=== PATIENT | male | born 1940 | race Caucasian/White ===

== ENCOUNTER → 2018-07-31 | Outpatient (CLI) | payer MEDICARE ==
[2018-07-31 10:51] LABS: HGB 14.7 gm/dL (13.0-17.5); MCHC 32.7 g/dL (31.0-37.0); MCV 88.6 fL (80.0-100.0); Mean Platelet Volume 7.3; Platelet Count 204 k/uL (150-450); RBC 5.09 m/uL (4.30-5.90); RDW 14.1 % (11.5-15.5); WBC 7.7 k/uL (3.8-10.6)
[2018-07-31 11:59] LABS: Prothrombin Time 9.8 sec (9.0-12.0)
[2018-07-31 19:18] LABS: Anion Gap 10.6 mmol/L (4.00-12.00); Carbon Dioxide 22.4 mmol/L (21.6-31.8); Potassium 4.2 mmol/L (3.5-5.5)
== END | disposition home or self-care (01) ==
LOC: LABWHC1 09:53
PROVIDERS: ATTEND Internal Medicine Cardiovascular Disease
DX: I10 Essential (primary) hypertension (principal); I25.10 Atherosclerotic heart disease of native coronary artery without angina pectoris
CPT/HCPCS: 36415; 80051; 82565; 84520; 85027; 85610

== ENCOUNTER → 2019-01-26 | Outpatient (CLI) | payer MEDICARE ==
[2019-01-26 13:47] LABS: HCT 43.4 % (39.0-53.0); HGB 14.2 gm/dL (13.0-17.5); MCH 29.4 pg (25.0-35.0); MCHC 32.8 g/dL (31.0-37.0); MCV 89.6 fL (80.0-100.0); Mean Platelet Volume 7.3; Platelet Count 229 k/uL (150-450); RBC 4.84 m/uL (4.30-5.90); RDW 14.1 % (11.5-15.5); WBC 6.9 k/uL (3.8-10.6)
[2019-01-26 20:28] LABS: Albumin 4.6 g/dL (3.80-4.90); Albumin/Globulin Ratio 2.56 (1.60-3.17); Anion Gap 9.4 mmol/L (4.00-12.00); Calcium 9.6 mg/dL (8.7-10.3); Carbon Dioxide 25.6 mmol/L (21.6-31.8); Globulin 1.8 g/dL (1.6-3.3); LDL Cholesterol,Calculated 70.4 mg/dL (0.0-131.0); Potassium 4.5 mmol/L (3.5-5.5); Total Bilirubin 0.4 mg/dL (0.2-1.2); Total Protein 6.4 g/dL (6.2-8.2); VLDL Calculation 51.6 mg/dL (5.00-40.00)
[2019-01-26 21:53] LABS: Hemoglobin A1C 7.6 % (4.0-6.0)
== END ==
LOC: LABWHC1 12:43
PROVIDERS: ATTEND Family Medicine
DX: I10 Essential (primary) hypertension (principal); E11.9 Type 2 diabetes mellitus without complications; E78.00 Pure hypercholesterolemia, unspecified; E03.9 Hypothyroidism, unspecified
CPT/HCPCS: 36415; 80053; 80061; 83036; 84443; 85027

== ENCOUNTER → 2019-02-04 | Outpatient (CLI) | payer MEDICARE ==
--- NOTE | 2019-02-04 10:40 | US ---
EXAMINATION TYPE: US extremity nonvasc mass RT DATE OF EXAM: 02/04/2019 COMPARISON: NONE CLINICAL HISTORY: R22.9 Localized swelling, mass and lump, unspecifi. Superficial hard lump right med ial mid calf for 3 weeks Scanned within patient's area of concern, right mid calf, complex anechoic area = 1.6 x 0.8 x 1.7cm . This appears centrally cystic with some low-level internal echoes and peripheral thick wall. No hype remia or internal vascularity is seen. IMPRESSION: Palpable avascular thick-walled cystic minimally complex superficial mass of the right m id calf most likely represents a hematoma. If there is no clinical resolution repeat short-term ultra sound or MRI with contrast could be performed.
== END | disposition home or self-care (01) ==
LOC: RADUSWWP 08:52
PROVIDERS: ATTEND Family Medicine
DX: R22.9 Localized swelling, mass and lump, unspecified (principal)

== ENCOUNTER → 2019-07-16 | Outpatient (CLI) | payer MEDICARE ==
[2019-07-16 10:52] LABS: HCT 45.5 % (39.0-53.0); HGB 14.2 gm/dL (13.0-17.5); MCH 28.6 pg (25.0-35.0); MCHC 31.3 g/dL (31.0-37.0); MCV 91.6 fL (80.0-100.0); Platelet Count 240 k/uL (150-450); RBC 4.97 m/uL (4.30-5.90); RDW 14.3 % (11.5-15.5); WBC 14.7 k/uL (3.8-10.6)
[2019-07-16 18:54] LABS: African American GFR (CKD) 74.1 (60.0-200.0); Albumin 4.6 g/dL (3.80-4.90); Albumin/Globulin Ratio 2.42 (1.60-3.17); Anion Gap 13.8 mmol/L (4.00-12.00); BUN/Creat Ratio 26.36 Ratio (12.00-20.00); Calcium 9.4 mg/dL (8.7-10.3); Carbon Dioxide 25.2 mmol/L (21.6-31.8); Chol/HDL Ratio 3.86; Globulin 1.9 g/dL (1.6-3.3); Potassium 4.4 mmol/L (3.5-5.5); Total Bilirubin 0.4 mg/dL (0.2-1.2); Total Protein 6.5 g/dL (6.2-8.2)
[2019-07-16 20:22] LABS: Hemoglobin A1C 8.7 % (4.0-6.0)
== END | disposition home or self-care (01) ==
LOC: LABWHC1 09:36
PROVIDERS: ATTEND Family Medicine
DX: E11.9 Type 2 diabetes mellitus without complications (principal); I10 Essential (primary) hypertension; E78.00 Pure hypercholesterolemia, unspecified; E03.9 Hypothyroidism, unspecified
CPT/HCPCS: 36415; 80053; 80061; 83036; 84443; 85027

== ENCOUNTER → 2020-04-14 | Outpatient (CLI) | payer MEDICARE ==
[2020-04-14 09:37] LABS: HCT 44.1 % (39.0-53.0); MCH 28.2 pg (25.0-35.0); MCHC 31.7 g/dL (31.0-37.0); Mean Platelet Volume 7.5; Platelet Count 220 k/uL (150-450); RBC 4.95 m/uL (4.30-5.90); RDW 13.6 % (11.5-15.5); WBC 7.3 k/uL (3.8-10.6)
[2020-04-14 16:06] LABS: African American GFR (CKD) 73.6 (60.0-200.0); Albumin 4.3 g/dL (3.80-4.90); Albumin/Globulin Ratio 2.05 (1.60-3.17); Anion Gap 10.3 mmol/L (4.00-12.00); BUN/Creat Ratio 17.27 Ratio (12.00-20.00); Calcium 9.6 mg/dL (8.7-10.3); Carbon Dioxide 23.7 mmol/L (21.6-31.8); Chol/HDL Ratio 4.33; Globulin 2.1 g/dL (1.6-3.3); LDL Cholesterol,Calculated 58.6 mg/dL (0.0-131.0); Non-African American GFR(CKD) 63.5 (60.0-200.0); Potassium 4.4 mmol/L (3.5-5.5); Total Bilirubin 0.4 mg/dL (0.3-1.2); Total Protein 6.4 g/dL (6.2-8.2); VLDL Calculation 71.4 mg/dL (5.00-40.00)
[2020-04-14 17:46] LABS: Hemoglobin A1C 10.2 % (4.0-6.0)
== END | disposition home or self-care (01) ==
LOC: LABWHC1 08:39
PROVIDERS: ATTEND Family Medicine
DX: I10 Essential (primary) hypertension (principal); R73.09 Other abnormal glucose; E78.00 Pure hypercholesterolemia, unspecified
CPT/HCPCS: 36415; 80053; 80061; 83036; 84443; 85027

== ENCOUNTER → 2020-07-28 | Outpatient (CLI) | payer MEDICARE ==
[2020-07-28 17:20] LABS: Hemoglobin A1C 7.6 % (4.0-6.0)
== END | disposition home or self-care (01) ==
LOC: LABWHC1 08:59
PROVIDERS: ATTEND Family Medicine
DX: E11.9 Type 2 diabetes mellitus without complications (principal)
CPT/HCPCS: 36415; 83036

== ENCOUNTER → 2021-07-17 | Outpatient (CLI) | payer MEDICARE ==
[2021-07-17 16:11] LABS: HCT 44.9 % (39.6-50.0); HGB 14.8 g/dL (13.0-17.0); MCH 29.4 pg (27.0-32.0); MCV 89.3 fL (80.0-97.0); Mean Platelet Volume 10.6 fL (9.5-12.2); Platelet Count 233 X 10*3/uL (140-440); RBC 5.03 X 10*6/uL (4.40-5.60); RDW 13.8 % (11.5-14.5); WBC 7.38 X 10*3/uL (4.50-10.00)
[2021-07-17 17:44] LABS: African American GFR (CKD) 78.2 (60.0-200.0); Albumin 4.6 g/dL (3.8-4.9); Albumin/Globulin Ratio 1.83 (1.60-3.17); Anion Gap 15.9 mmol/L (4.00-12.00); Blood Urea Nitrogen 20.8 mg/dL (9.0-27.0); Calcium 9.7 mg/dL (8.7-10.3); Carbon Dioxide 19.4 mmol/L (21.6-31.8); Chol/HDL Ratio 4.35 Ratio; Globulin 2.5 g/dL (1.6-3.3); HDL Cholesterol 39.8 mg/dL (40.00-60.00); Non-African American GFR(CKD) 67.5 (60.0-200.0); Potassium 4.4 mmol/L (3.5-5.5); Total Bilirubin 0.3 mg/dL (0.30-1.20)
== END | disposition home or self-care (01) ==
LOC: LABWHC1 08:15
PROVIDERS: ATTEND Family Medicine
DX: I10 Essential (primary) hypertension (principal); E11.9 Type 2 diabetes mellitus without complications; E78.5 Hyperlipidemia, unspecified
CPT/HCPCS: 36415; 80053; 80061; 83036; 83721; 84443; 85027

== ENCOUNTER → 2022-05-20 | Outpatient (CLI) | payer MEDICARE ==
[2022-05-20 09:58] LABS: INR 0.9 (<1.2); Partial Thromboplastin Time 23.4 sec (22.0-30.0); Prothrombin Time 10.2 sec (9.0-12.0)
[2022-05-20 14:30] LABS: HCT 42.3 % (39.6-50.0); HGB 13.6 g/dL (13.0-17.0); MCHC 32.2 g/dL (32.0-37.0); Mean Platelet Volume 9.9 fL (9.5-12.2); NRBC Per 100 WBC 0 /100 WBCS (0.0-0.0); Platelet Count 216 X 10*3/uL (140-440); RBC 4.86 X 10*6/uL (4.40-5.60); RDW 14.5 % (11.5-14.5); WBC 8.54 X 10*3/uL (4.50-10.00)
[2022-05-20 14:40] LABS: African American GFR (CKD) 72.6 (60.0-200.0); Albumin 4.4 g/dL (3.8-4.9); Albumin/Globulin Ratio 1.42 (1.60-3.17); Anion Gap 11.8 mmol/L (10.00-18.00); BUN/Creat Ratio 19.27 Ratio (12.00-20.00); Blood Urea Nitrogen 21.2 mg/dL (9.0-27.0); Calcium 9.6 mg/dL (8.7-10.3); Carbon Dioxide 23.2 mmol/L (20.0-27.5); Globulin 3.1 g/dL (1.6-3.3); Non-African American GFR(CKD) 62.6 (60.0-200.0); Potassium 4.2 mmol/L (3.5-5.5); Total Bilirubin 0.2 mg/dL (0.30-1.20); Total Protein 7.5 g/dL (6.2-8.2)
[2022-05-20 20:34] LABS: Appearance,Urine Clear (Clear); Bilirubin,Urine Negative (Negative); Blood,Urine Negative (Negative); Color,Urine Yellow (Yellow); Ketones,Urine Trace mg/dL (Negative); Nitrite,Urine Negative (Negative); PH, Urine 6.5 (5.0-8.0); Specific Gravity,Urine 1.024 (1.001-1.030)
== END | disposition home or self-care (01) ==
LOC: LABPAT 09:17
PROVIDERS: ATTEND Orthopaedic Surgery
DX: Z01.812 Encounter for preprocedural laboratory examination (principal); M16.12 Unilateral primary osteoarthritis, left hip
CPT/HCPCS: 80053; 81001; 85027; 85610; 85730; 87070; 93005

== ENCOUNTER → 2022-06-06 | Outpatient (CLI) | payer MEDICARE ==
--- NOTE | 2022-06-06 16:47 | US ---
EXAMINATION TYPE: US venous doppler duplex LE LT DATE OF EXAM: 06/06/2022 4:24 PM COMPARISON: 09/08/2017 venous ultrasound. CLINICAL HISTORY: I80.9 PHLEBITIS AND THROMBOPHLEBITIS OF UNSPECIFI. SIDE PERFORMED: left TECHNIQUE: The lower extremity deep venous system is examined utilizing real time linear array sonog joaquin with graded compression, doppler sonography and color-flow sonography. VESSELS IMAGED: Common Femoral Vein Deep Femoral Vein Greater Saphenous Vein * Femoral Vein Popliteal Vein Small Saphenous Vein * Proximal Calf Veins (* superficial vessels) Grayscale, color doppler, spectral doppler imaging performed of the deep veins of the left lower extr emity. There is normal flow, compressibility, vascular waveforms. Left Leg: Negative for DVT IMPRESSION: No deep venous thrombosis of the left lower extremity.
== END | disposition home or self-care (01) ==
LOC: RADUSWWP 16:08
PROVIDERS: ATTEND Orthopaedic Surgery
DX: M16.12 Unilateral primary osteoarthritis, left hip (principal); I80.9 Phlebitis and thrombophlebitis of unspecified site; E78.5 Hyperlipidemia, unspecified; I10 Essential (primary) hypertension; E11.9 Type 2 diabetes mellitus without complications

== ENCOUNTER → 2023-02-24 | Outpatient (CLI) | payer MEDICARE ==
[2023-02-24 15:42] LABS: Basophils # (A) 0.06 X 10*3/uL (0.00-0.10); Basophils % (A) 0.9 %; Eosinophils # (A) 0.32 X 10*3/uL (0.04-0.35); Eosinophils % (A) 4.9 %; HCT 41.4 % (39.6-50.0); HGB 13.3 g/dL (13.0-17.0); Immature Grans, Automated 0.5 %; Lymphocytes # (A) 1.26 X 10*3/uL (0.90-5.00); Lymphocytes % (A) 19.3 %; MCHC 32.1 g/dL (32.0-37.0); MCV 87.2 fL (80.0-97.0); Monocytes # (A) 0.56 X 10*3/uL (0.20-1.00); Monocytes % (A) 8.6 %; NRBC Per 100 WBC 0 /100 WBCS (0.0-0.0); Neutrophils # (A) 4.31 X 10*3/uL (1.80-7.70); Neutrophils % (A) 65.8 %; Platelet Count 220 X 10*3/uL (140-440); RBC 4.75 X 10*6/uL (4.40-5.60); WBC 6.54 X 10*3/uL (4.50-10.00)
[2023-02-24 15:47] LABS: African American GFR (CKD) 80.9 (60.0-200.0); Chol/HDL Ratio 3.55 Ratio; Glucose 180 mg/dL (70-110); LDL Cholesterol,Calculated 51.8 mg/dL (0.0-131.0); Non-African American GFR(CKD) 69.8 (60.0-200.0); Uric Acid 6.4 mg/dL (3.7-8.7)
== END | disposition home or self-care (01) ==
LOC: LABWHC1 08:44
PROVIDERS: ATTEND Internal Medicine
DX: I25.10 Atherosclerotic heart disease of native coronary artery without angina pectoris (principal)
CPT/HCPCS: 36415; 80061; 82565; 82947; 84520; 84550; 85025

== ENCOUNTER 2024-08-24 10:46 | Emergency (ER) | payer MEDICARE ==
[2024-08-24 10:50] VITALS: TEMP 97.5
--- NOTE | 2024-08-24 11:01 | ED ---
General Adult HPI - General Chief complaint: Shortness of Breath Stated complaint: LAITH Time Seen by Provider: 08/24/24 10:53 Source: patient, RN notes reviewed Mode of arrival: wheelchair Limitations: no limitations - History of Present Illness Initial comments: 83-year-old male presents emergency department chief complaint of shortness of breath. Patient states he has not felt well the last couple weeks he states he is on his second Z-Abdulkadir prescribed by his PCP. Patient states has had a large amount of thick nasal drainage, productive cough. He states that today he developed worsening cough and wheezing. Patient states he does have a history of congestive heart failure he states he is on 2 diuretics. He does have chronic swelling of his lower extremities not worse than usual. He states he normally has some blistering. He reports no reported fever denies any chest pain - Related Data Home Medications Medication Instructions Recorded Confirmed Aspirin EC [Ecotrin] 81 mg PO DAILY 05/04/16 08/24/24 Levothyroxine Sodium [Synthroid] 150 mcg PO DAILY 05/04/16 08/24/24 Clopidogrel [Plavix] 75 mg PO DAILY 05/22/22 08/24/24 Isosorbide Mononitrate ER [Imdur] 30 mg PO DAILY 05/22/22 08/24/24 Losartan Potassium [Cozaar] 100 mg PO DAILY 05/22/22 08/24/24 Metoprolol Succinate (ER) [Toprol 25 mg PO DAILY 05/22/22 08/24/24 Xl] metFORMIN HCL [Glucophage] 1,000 mg PO DAILY 05/22/22 08/24/24 Azithromycin [Zithromax Z Pack] See Taper PO DIRECTED 08/24/24 08/24/24 Empagliflozin [Jardiance] 10 mg PO DAILY 08/24/24 08/24/24 Furosemide [Lasix] 40 mg PO DAILY 08/24/24 08/24/24 Potassium Chloride ER [K-Dur 20] 20 meq PO DAILY 08/24/24 08/24/24 Rosuvastatin [Crestor] 20 mg PO HS 08/24/24 08/24/24 Allergies Allergy/AdvReac Type Severity Reaction Status Date / Time Penicillins Allergy Swelling Verified 08/24/24 11:41 Review of Systems ROS Statement: Those systems with pertinent positive or pertinent negative responses have been documented in the HPI. ROS Other: All systems not noted in ROS Statement are negative. Past Medical History Past Medical History: Hyperlipidemia, Hypertension, Myocardial Infarction (SD), Thyroid Disorder Additional Past Medical History / Comment(s): Emphysema Last Myocardial Infarction Date:: 1992 History of Any Multi-Drug Resistant Organisms: None Reported Past Surgical History: Appendectomy, Back Surgery, Coronary Bypass/CABG, Joint Replacement, Orthopedic Surgery Past Anesthesia/Blood Transfusion Reactions: No Reported Reaction Past Psychological History: No Psychological Hx Reported Smoking Status: Former smoker Past Alcohol Use History: None Reported - Past Family History Sister(s) Family Medical History: Diabetes Mellitus Father Family Medical History: Myocardial Infarction (SD) Mother Family Medical History: Cancer General Exam Limitations: no limitations General appearance: alert, in no apparent distress Head exam: Present: atraumatic, normocephalic, normal inspection Respiratory exam: Present: wheezes, stridor. Absent: normal lung sounds bilaterally, respiratory distress, rales, rhonchi Cardiovascular Exam: Present: regular rate, normal rhythm, normal heart sounds. Absent: systolic murmur, diastolic murmur, rubs, gallop, clicks GI/Abdominal exam: Present: soft, normal bowel sounds. Absent: distended, tenderness, guarding, rebound, rigid Extremities exam: Present: pedal edema Neurological exam: Present: alert Skin exam: Present: warm, dry, intact, normal color. Absent: rash Course Vital Signs 08/24/24 08/24/24 08/24/24 10:47 10:55 11:15 Temperature 97.5 F L Pulse Rate 103 H 90 89 Respiratory 28 H 26 H Rate Blood Pressure 116/75 108/56 O2 Sat by Pulse 98 98 Oximetry 08/24/24 08/24/24 08/24/24 11:24 11:53 11:57 Temperature Pulse Rate 88 75 Respiratory 20 20 Rate Blood Pressure 108/56 O2 Sat by Pulse 98 Oximetry 08/24/24 08/24/24 12:22 12:32 Temperature Pulse Rate 84 89 Respiratory Rate Blood Pressure O2 Sat by Pulse Oximetry Medical Decision Making - Medical Decision Making Was pt. sent in by a medical professional or institution (, PA, RAILROAD CONDUCTOR, urgent care, hospital, or senior care...) When possible be specific @ -No Did you speak to anyone other than the patient for history (EMS, parent, family, police, friend...)? What history was obtained from this source @ -No Did you review nursing and triage notes (agree or disagree)? Why? @ -I reviewed and agree with nursing and triage notes Were old charts reviewed (outside hosp., previous admission, EMS record, old EKG, old radiological studies, urgent care reports/EKG's, senior care records)? Report findings @ -No old charts were reviewed Differential Diagnosis (chest pain, altered mental status, abdominal pain women, abdominal pain men, vaginal bleeding, weakness, fever, dyspnea, syncope, headache, dizziness, GI bleed, back pain, seizure, CVA, palpatations, mental health, musculoskeletal)? @ -Differential Dyspnea: Coronary syndrome, arrhythmia, tamponade, asthma, COPD, pulmonary embolism, pneumonia, pneumothorax, pulmonary effusion, anaphylaxis, diabetic ketoacidosis, flailed chest, pulmonary contusion, diaphragmatic rupture, anemia, neuromuscular, this is not meant to be an all-inclusive list. EKG interpreted by me (3pts min.). @ -As above X-rays interpreted by me (1pt min.). @ -Chest x-ray shows chronic changes no acute infiltrate X-ray soft tissue neck no acute process CT interpreted by me (1pt min.). @ -None done U/S interpreted by me (1pt. min.). @ -None done What testing was considered but not performed or refused? (CT, X-rays, U/S, labs)? Why? @ -None What meds were considered but not given or refused? Why? @ -None Did you discuss the management of the patient with other professionals (professionals i.e. , PA, RAILROAD CONDUCTOR, lab, RT, psych nurse, licensed social worker, quality control tech, teacher, juvenile officer, pillowcase cutter)? Give summary @ -Dr. Hernandez for admission with pulmonary consult Was smoking cessation discussed for >3mins.? @ -No Was critical care preformed (if so, how long)? @ -No Were there social determinants of health that impacted care today? How? (Homelessness, low income, unemployed, alcoholism, drug addiction, transpo rtation, low edu. Level, literacy, decrease access to med. care, assisted, rehab)? @ -No Was there de-escalation of care discussed even if they declined (Discuss DNR or withdrawal of care, Hospice)? DNR status @ -No What co-morbidities impacted this encounter? (DM, HTN, Smoking, COPD, CAD, Cancer, CVA, ARF, Chemo, Hep., AIDS, mental health diagnosis, sleep apnea, morbid obesity)? @ -None Was patient admitted / discharged? Hospital course, mention meds given and route, prescriptions, significant lab abnormalities, going to OR and other pertinent info. @ -Admitted patient presented for dyspnea, stridorous dyspnea patient did have racemic epinephrine, DuoNeb, steroids he said minimal improvement. Patient be admitted for further evaluation treatment continuation of steroids antibiotics are giving pending procalcitonin. Undiagnosed new problem with uncertain prognosis? @ -No Drug Therapy requiring intensive monitoring for toxicity (Heparin, Nitro, Insulin, Cardizem)? @ -No Were any procedures done? @ -No Diagnosis/symptom? @ -Inspiratory stridor, dyspnea, tracheobronchitis Acute, or Chronic, or Acute on Chronic? @ -Acute Uncomplicated (without systemic symptoms) or Complicated (systemic symptoms)? @ -Complicated Side effects of treatment? @ -No Exacerbation, Progression, or Severe Exacerbation? @ -No Poses a threat to life or bodily function? How? (Chest pain, USA, SD, pneumonia, PE, COPD, DKA, ARF, appy, cholecystitis, CVA, Diverticulitis, Homicidal, Suicidal, threat to staff... and all critical care pts) @ -Yes stridor, causing respiratory arrest - Lab Data Result diagrams: 08/24/24 11:23 08/24/24 11:23 Lab Results 08/24/24 08/24/24 08/24/24 Range/Units 11:23 11:23 11:23 WBC 16.5 H (3.8-10.6) k/uL RBC 4.93 (4.30-5.90) m/uL Hgb 13.9 (13.0-17.5) gm/dL Hct 43.8 (39.0-53.0) % MCV 88.8 (80.0-100.0) fL MCH 28.3 (25.0-35.0) pg MCHC 31.8 (31.0-37.0) g/dL RDW 15.1 (11.5-15.5) % Plt Count 333 (150-450) k/uL MPV 7.3 Neutrophils % 86 % Lymphocytes % 8 % Monocytes % 5 % Eosinophils % 1 % Basophils % 1 % Neutrophils # 14.1 H (1.3-7.7) k/uL Lymphocytes # 1.3 (1.0-4.8) k/uL Monocytes # 0.8 (0-1.0) k/uL Eosinophils # 0.1 (0-0.7) k/uL Basophils # 0.1 (0-0.2) k/uL Hypochromasia Slight PT 10.5 (10.0-12.5) sec INR 0.9 (<1.2) APTT 25.6 (22.0-30.0) sec Sodium 141 (137-145) mmol/L Potassium 4.5 (3.5-5.1) mmol/L Chloride 105 (98-107) mmol/L Carbon Dioxide 22 (22-30) mmol/L Anion Gap 14 mmol/L BUN 29 H (9-20) mg/dL Creatinine 1.36 H (0.66-1.25) mg/dL Est GFR (CKD-EPI)AfAm 55 (>60 ml/min/1.73 sqM) Est GFR (CKD-EPI)NonAf 48 (>60 ml/min/1.73 sqM) Glucose 186 H (74-99) mg/dL Plasma Lactic Acid Tray (0.7-2.0) mmol/L Calcium 9.5 (8.4-10.2) mg/dL Total Bilirubin 1.1 (0.2-1.3) mg/dL AST 33 (17-59) U/L ALT 25 (4-49) U/L Alkaline Phosphatase 67 (38-126) U/L Troponin I (0.000-0.034) ng/mL NT-Pro-B Natriuret Pep 361 pg/mL Total Protein 7.9 (6.3-8.2) g/dL Albumin 4.5 (3.5-5.0) g/dL 08/24/24 08/24/24 Range/Units 11:23 11:23 WBC (3.8-10.6) k/uL RBC (4.30-5.90) m/uL Hgb (13.0-17.5) gm/dL Hct (39.0-53.0) % MCV (80.0-100.0) fL MCH (25.0-35.0) pg MCHC (31.0-37.0) g/dL RDW (11.5-15.5) % Plt Count (150-450) k/uL MPV Neutrophils % % Lymphocytes % % Monocytes % % Eosinophils % % Basophils % % Neutrophils # (1.3-7.7) k/uL Lymphocytes # (1.0-4.8) k/uL Monocytes # (0-1.0) k/uL Eosinophils # (0-0.7) k/uL Basophils # (0-0.2) k/uL Hypochromasia PT (10.0-12.5) sec INR (<1.2) APTT (22.0-30.0) sec Sodium (137-145) mmol/L Potassium (3.5-5.1) mmol/L Chloride (98-107) mmol/L Carbon Dioxide (22-30) mmol/L Anion Gap mmol/L BUN (9-20) mg/dL Creatinine (0.66-1.25) mg/dL Est GFR (CKD-EPI)AfAm (>60 ml/min/1.73 sqM) Est GFR (CKD-EPI)NonAf (>60 ml/min/1.73 sqM) Glucose (74-99) mg/dL Plasma Lactic Acid Tray 2.8 H* (0.7-2.0) mmol/L Calcium (8.4-10.2) mg/dL Total Bilirubin (0.2-1.3) mg/dL AST (17-59) U/L ALT (4-49) U/L Alkaline Phosphatase (38-126) U/L Troponin I <0.012 (0.000-0.034) ng/mL NT-Pro-B Natriuret Pep pg/mL Total Protein (6.3-8.2) g/dL Albumin (3.5-5.0) g/dL Disposition Clinical Impression: Tracheobronchitis, Inspiratory stridor Disposition: ADMITTED IP TO THIS HOSP Condition: Fair Referrals: Jordin Pereira MD [Primary Care Provider] - 1-2 days Time of Disposition: 13:06
[2024-08-24] MEDS: methylPREDNISolone SOD SUCCI 125 MG/2 ML VIAL IV STA (11:05)
[2024-08-24] MEDS: RACEPINEPHRINE 2.25% NEB 0.5 ML NEBU INHALATION STA (11:14)
[2024-08-24 11:44] LABS: Basophils # (A) 0.1 k/uL (0-0.2); Basophils % (A) 1 %; Eosinophils # (A) 0.1 k/uL (0-0.7); Eosinophils % (A) 1 %; HCT 43.8 % (39.0-53.0); HGB 13.9 gm/dL (13.0-17.5); Hypochromasia Slight; Lymphocytes # (A) 1.3 k/uL (1.0-4.8); Lymphocytes % (A) 8 %; MCH 28.3 pg (25.0-35.0); MCHC 31.8 g/dL (31.0-37.0); MCV 88.8 fL (80.0-100.0); Mean Platelet Volume 7.3; Monocytes # (A) 0.8 k/uL (0-1.0); Monocytes % (A) 5 %; Neutrophils # (A) 14.1 k/uL (1.3-7.7); Neutrophils % (A) 86 %; Platelet Count 333 k/uL (150-450); RBC 4.93 m/uL (4.30-5.90); RDW 15.1 % (11.5-15.5); WBC 16.5 k/uL (3.8-10.6)
--- NOTE | 2024-08-24 11:54 | XR ---
EXAMINATION TYPE: XR chest 2V DATE OF EXAM: 08/24/2024 11:45 AM COMPARISON: Chest radiographs from 05/04/2016, CT chest 08/21/2016 TECHNIQUE: XR chest 2V Frontal and lateral views of the chest. CLINICAL INDICATION:Male, 83 years old with history of difficulty breathing; FINDINGS: Lungs/Pleura: There is no evidence of pleural effusion, focal consolidation, or pneumothorax. Chroni c lung changes. Eventration of the right hemidiaphragm redemonstrated. Pulmonary vascularity: Unremarkable. Heart/mediastinum: Cardiomediastinal silhouette is stable. Atherosclerotic calcifications are seen i n the aorta. Musculoskeletal: Multiple level degenerative disc disease changes seen throughout the spine. Midline sternotomy wires are noted and stable. IMPRESSION: Chronic changes without acute pulmonary process. No significant change from prior. [facility], , 08/24/2024 11:52 AM
--- NOTE | 2024-08-24 11:54 | XR ---
EXAMINATION TYPE: XR soft tissue neck DATE OF EXAM: 08/24/2024 11:45 AM COMPARISON: None CLINICAL INDICATION: Male, 83 years old with history of SOB; PHH TECHNIQUE: The soft tissues of the neck were imaged in frontal and lateral views. FINDINGS: The prevertebral soft tissues are unremarkable. There is no evidence of mass effect or trac heal deviation. No acute osseous abnormality demonstrated. No evidence of subglottic narrowing. Clemente rnotomy wires are present. IMPRESSION: No significant abnormality identified within the soft tissues of the neck. [facility], , 08/24/2024 11:51 AM
[2024-08-24 12:00] LABS: ALT 25 U/L (4-49); African American GFR (CKD) 55 (>60 ml/min/1.73 sqM); Anion Gap 14 mmol/L; Blood Urea Nitrogen 29 mg/dL (9-20); Calcium 9.5 mg/dL (8.4-10.2); Carbon Dioxide 22 mmol/L (22-30); Chloride 105 mmol/L (98-107); Glucose 186 mg/dL (74-99); Non-African American GFR(CKD) 48 (>60 ml/min/1.73 sqM); Sodium 141 mmol/L (137-145); Total Bilirubin 1.1 mg/dL (0.2-1.3)
[2024-08-24 12:03] LABS: AST 33 U/L (17-59); Albumin 4.5 g/dL (3.5-5.0); Alkaline Phosphatase 67 U/L (38-126); Potassium 4.5 mmol/L (3.5-5.1); Total Protein 7.9 g/dL (6.3-8.2)
[2024-08-24 12:08] LABS: NT-Pro-B-Type Natriuretic Pept 361 pg/mL
[2024-08-24 12:21] LABS: INR 0.9 (<1.2); Partial Thromboplastin Time 25.6 sec (22.0-30.0); Prothrombin Time 10.5 sec (10.0-12.5)
[2024-08-24] MEDS: IPRATROPIUM-ALBUTEROL 3 ML NEB INHALATION STA (12:21)
[2024-08-24] MEDS ORDERED: NALOXONE 0.4 MG/ML 1 ML VIAL IVP PRN (13:07)
[2024-08-24] MEDS ORDERED: IPRATROPIUM-ALBUTEROL 3 ML NEB INHALATION PRN (13:07)
[2024-08-24] MEDS: LEVOFLOXACIN 500MG-D5W PMX 500 MG in DEXTROSE/WATER 1 100ML.BAG IVPB SCH (14:30)
--- NOTE | 2024-08-24 14:37 | P.CNPUL ---
History of Present Illness Consult date: 08/24/24 Requesting physician: Sukhwinder Hernandez Reason for consult: dyspnea, other Chief complaint: Stridor. History of present illness: Pulmonary consult dated August 24, 2024. 83-year-old male who was seen in the emergency department, on August 24, 2024. He came into the emergency room, complaining of shortness of breath. Actually, he has audible stridor. The patient states that about 10 days ago, he was having a sinus infection and he saw his doctor, who gave him a Z-Abdulkadir. He went back, and got another Z-Abdulkadir, because of for Z-Abdulkadir, was not really helping that much, and he got about custodial through it, and yesterday developed noisy breathing pattern. Initially, he complained of nasal drainage, productive cough, and nasal congestion, with developing cough and wheezing. I was called by the ER provider, to come see the patient, to determine whether or not he should stay here, or be shipped. The patient did receive some corticosteroids in the emergency department. The patient has very audible and significant stridor. Again the stridor started yesterday. The patient's history includes hyperlipidemia, hypertension, myocardial infarction, and emphysema. The patient was a former smoker. Laboratory data includes a white count of 16.5, hemoglobin 13.9, hematocrit 43.8, and a normal platelet count. Coag studies were normal. Sodium 141, potassium 4.5, chlorides 105, CO2 22, BUN 29, creatinine 1.36. Lactic acid 2.8. Glucose 186. Viral studies were negative. Chest x-ray is unremarkable in my opinion. A soft tissue x-ray of the neck, did not reveal any identifiable abnormalities. Review of Systems REVIEW OF SYSTEMS: CONSTITUTIONAL: [Negative.] NEUROLOGIC: [ Negative.] HEENT: Nasal congestion, stuffiness. CARDIAC: [Negative.] PULMONARY: Noisy respirations. Shortness of breath, cough. GI: [Negative.] : [Negative.] RHEUMATOLOGIC: [ Negative.] IMMUNOLOGIC: [ Negative.] ENDOCRINE: [Negative. ] DERMATOLOGIC: [Negative.] Past Medical History Past Medical History: Hyperlipidemia, Hypertension, Myocardial Infarction ([place]), Thyroid Disorder Additional Past Medical History / Comment(s): Emphysema Last Myocardial Infarction Date:: 1992 History of Any Multi-Drug Resistant Organisms: None Reported Past Surgical History: Appendectomy, Back Surgery, Coronary Bypass/CABG, Joint Replacement, Orthopedic Surgery Past Anesthesia/Blood Transfusion Reactions: No Reported Reaction Past Psychological History: No Psychological Hx Reported Smoking Status: Former smoker Past Alcohol Use History: None Reported - Past Family History Sister(s) Family Medical History: Diabetes Mellitus Father Family Medical History: Myocardial Infarction ([place]) Mother Family Medical History: Cancer Medications and Allergies Home Medications Medication Instructions Recorded Confirmed Type Aspirin EC [Ecotrin] 81 mg PO DAILY 05/04/16 08/24/24 History Levothyroxine Sodium [Synthroid] 150 mcg PO DAILY 05/04/16 08/24/24 History Clopidogrel [Plavix] 75 mg PO DAILY 05/22/22 08/24/24 History Isosorbide Mononitrate ER [Imdur] 30 mg PO DAILY 05/22/22 08/24/24 History Losartan Potassium [Cozaar] 100 mg PO DAILY 05/22/22 08/24/24 History Metoprolol Succinate (ER) [Toprol 25 mg PO DAILY 05/22/22 08/24/24 History Xl] metFORMIN HCL [Glucophage] 1,000 mg PO DAILY 05/22/22 08/24/24 History Azithromycin [Zithromax Z Pack] See Taper PO DIRECTED 08/24/24 08/24/24 History Empagliflozin [Jardiance] 10 mg PO DAILY 08/24/24 08/24/24 History Furosemide [Lasix] 40 mg PO DAILY 08/24/24 08/24/24 History Potassium Chloride ER [K-Dur 20] 20 meq PO DAILY 08/24/24 08/24/24 History Rosuvastatin [Crestor] 20 mg PO HS 08/24/24 08/24/24 History Allergies Allergy/AdvReac Type Severity Reaction Status Date / Time Penicillins Allergy Swelling Verified 08/24/24 11:41 Physical Exam Osteopathic Statement: *. No significant issues noted on an osteopathic structural exam other than those noted in the History and Physical/Consult. Vitals: Vital Signs Temp Pulse Resp BP Pulse Ox 08/24/24 14:12 77 18 105/66 98 08/24/24 13:25 86 20 112/66 98 08/24/24 12:32 89 08/24/24 12:22 84 08/24/24 11:57 75 20 108/56 98 08/24/24 11:53 20 08/24/24 11:24 88 08/24/24 11:15 89 08/24/24 10:55 90 26 H 108/56 98 08/24/24 10:47 97.5 F L 103 H 28 H 116/75 98 Intake and Output 08/23/24 08/24/24 08/24/24 22:59 06:59 14:59 Other: Weight 92.986 kg Audible stridor, with inspiratory effort. The patient on nasal O2 at 2 L. HEENT examination is grossly unremarkable. Neck supple. Full range of motion. No adenopathy thyromegaly or neck vein distention. Cardiovascular examination reveals regular rhythm rate. S1-S2 normal. No S3 or S4. No discernible murmur noted. Lungs reveal scattered rhonchi. No wheezes or crackles. Breath sounds equal. Abdomen soft bowel sounds are heard. No masses or tenderness. Extremities are intact. No cyanosis clubbing or edema. Skin is without rash or lesion. Neurologic examination is brief but nonfocal. Results - Laboratory Findings CBC and BMP: 08/24/24 11:23 08/24/24 11:23 PT/INR, D-dimer PT 10.5 sec (10.0-12.5) 08/24/24 11:23 INR 0.9 (<1.2) 08/24/24 11:23 Abnormal lab findings: Abnormal Labs 08/24/24 08/24/24 08/24/24 11:23 11:23 11:23 WBC 16.5 H Neutrophils # 14.1 H BUN 29 H Creatinine 1.36 H Glucose 186 H Plasma Lactic Acid Tray 2.8 H* - Diagnostic Findings Chest x-ray: image reviewed Assessment and Plan Assessment: Acute stridor, developing yesterday, rule out developing supraglottitis/epiglottitis. Recent upper respiratory tract infection/sinusitis, treated with a Z-Abdulkadir. History of myocardial infarction. Previous CABG. History of hypertension. History of diabetes mellitus. History of hypothyroidism. Prior history of tobacco use. Plan: Plan dated August 24, 2024. The patient is seen in the emergency department, room 18. The patient came into the emergency department, today, complaining of difficulty breathing. The patient has significantly audible stridor. With each inspiratory effort, the patient does have significant stridor. The patient apparently became sick about 10 days ago, and was treated for an upper respiratory tract infection/sinusitis, initially with a Z-Abdulakdir. He went back to his doctor, and received another Z-Abdulkadir, because of for Z-Abdulkadir, apparently did not really take care of the problem. I spoke to the ER provider, and recommended transfer to outside facility, as apparently we do not have ear nose and throat coverage at this hospital. The patient may require a emergent/urgent tracheostomy. The patient has received breathing treatments, and corticosteroids. Prognosis is guarded. Time with Patient: Greater than 30
--- NOTE | 2024-08-24 14:56 | ED ---
Medical Decision Making - Medical Decision Making Prior to patient be fully admitted patient was evaluated by pulmonary as a contact and concern the patient stridor. Patient was evaluated by Dr. Persaud recommends patient to be transferred to facility with ENT coverage. He is concerned that he may need an emergent airway, emergent trach we do not have ENT on-call for trach placement. Patient updated on plan. Patient remained stable at this time will be transported via EMS to [facility] I did discuss the case with [facility] fluzuleima excepted by Dr. Grigsby - Lab Data Result diagrams: 08/24/24 11:23 08/24/24 11:23 Lab Results 08/24/24 08/24/24 08/24/24 Range/Units 11:23 11:23 11:23 WBC 16.5 H (3.8-10.6) k/uL RBC 4.93 (4.30-5.90) m/uL Hgb 13.9 (13.0-17.5) gm/dL Hct 43.8 (39.0-53.0) % MCV 88.8 (80.0-100.0) fL MCH 28.3 (25.0-35.0) pg MCHC 31.8 (31.0-37.0) g/dL RDW 15.1 (11.5-15.5) % Plt Count 333 (150-450) k/uL MPV 7.3 Neutrophils % 86 % Lymphocytes % 8 % Monocytes % 5 % Eosinophils % 1 % Basophils % 1 % Neutrophils # 14.1 H (1.3-7.7) k/uL Lymphocytes # 1.3 (1.0-4.8) k/uL Monocytes # 0.8 (0-1.0) k/uL Eosinophils # 0.1 (0-0.7) k/uL Basophils # 0.1 (0-0.2) k/uL Hypochromasia Slight PT 10.5 (10.0-12.5) sec INR 0.9 (<1.2) APTT 25.6 (22.0-30.0) sec Sodium 141 (137-145) mmol/L Potassium 4.5 (3.5-5.1) mmol/L Chloride 105 (98-107) mmol/L Carbon Dioxide 22 (22-30) mmol/L Anion Gap 14 mmol/L BUN 29 H (9-20) mg/dL Creatinine 1.36 H (0.66-1.25) mg/dL Est GFR (CKD-EPI)AfAm 55 (>60 ml/min/1.73 sqM) Est GFR (CKD-EPI)NonAf 48 (>60 ml/min/1.73 sqM) Glucose 186 H (74-99) mg/dL Lactic Ac Sepsis Rflx Plasma Lactic Acid Tray (0.7-2.0) mmol/L Calcium 9.5 (8.4-10.2) mg/dL Total Bilirubin 1.1 (0.2-1.3) mg/dL AST 33 (17-59) U/L ALT 25 (4-49) U/L Alkaline Phosphatase 67 (38-126) U/L Troponin I (0.000-0.034) ng/mL NT-Pro-B Natriuret Pep 361 pg/mL Total Protein 7.9 (6.3-8.2) g/dL Albumin 4.5 (3.5-5.0) g/dL Influenza Type A (PCR) (Not Detectd) Influenza Type B (PCR) (Not Detectd) RSV (PCR) (Not Detectd) SARS-CoV-2 (PCR) (Not Detectd) 08/24/24 08/24/24 08/24/24 Range/Units 11:23 11:23 12:06 WBC (3.8-10.6) k/uL RBC (4.30-5.90) m/uL Hgb (13.0-17.5) gm/dL Hct (39.0-53.0) % MCV (80.0-100.0) fL MCH (25.0-35.0) pg MCHC (31.0-37.0) g/dL RDW (11.5-15.5) % Plt Count (150-450) k/uL MPV Neutrophils % % Lymphocytes % % Monocytes % % Eosinophils % % Basophils % % Neutrophils # (1.3-7.7) k/uL Lymphocytes # (1.0-4.8) k/uL Monocytes # (0-1.0) k/uL Eosinophils # (0-0.7) k/uL Basophils # (0-0.2) k/uL Hypochromasia PT (10.0-12.5) sec INR (<1.2) APTT (22.0-30.0) sec Sodium (137-145) mmol/L Potassium (3.5-5.1) mmol/L Chloride (98-107) mmol/L Carbon Dioxide (22-30) mmol/L Anion Gap mmol/L BUN (9-20) mg/dL Creatinine (0.66-1.25) mg/dL Est GFR (CKD-EPI)AfAm (>60 ml/min/1.73 sqM) Est GFR (CKD-EPI)NonAf (>60 ml/min/1.73 sqM) Glucose (74-99) mg/dL Lactic Ac Sepsis Rflx Y Plasma Lactic Acid Tray 2.8 H* (0.7-2.0) mmol/L Calcium (8.4-10.2) mg/dL Total Bilirubin (0.2-1.3) mg/dL AST (17-59) U/L ALT (4-49) U/L Alkaline Phosphatase (38-126) U/L Troponin I <0.012 (0.000-0.034) ng/mL NT-Pro-B Natriuret Pep pg/mL Total Protein (6.3-8.2) g/dL Albumin (3.5-5.0) g/dL Influenza Type A (PCR) (Not Detectd) Influenza Type B (PCR) (Not Detectd) RSV (PCR) (Not Detectd) SARS-CoV-2 (PCR) (Not Detectd) 08/24/24 Range/Units 13:22 WBC (3.8-10.6) k/uL RBC (4.30-5.90) m/uL Hgb (13.0-17.5) gm/dL Hct (39.0-53.0) % MCV (80.0-100.0) fL MCH (25.0-35.0) pg MCHC (31.0-37.0) g/dL RDW (11.5-15.5) % Plt Count (150-450) k/uL MPV Neutrophils % % Lymphocytes % % Monocytes % % Eosinophils % % Basophils % % Neutrophils # (1.3-7.7) k/uL Lymphocytes # (1.0-4.8) k/uL Monocytes # (0-1.0) k/uL Eosinophils # (0-0.7) k/uL Basophils # (0-0.2) k/uL Hypochromasia PT (10.0-12.5) sec INR (<1.2) APTT (22.0-30.0) sec Sodium (137-145) mmol/L Potassium (3.5-5.1) mmol/L Chloride (98-107) mmol/L Carbon Dioxide (22-30) mmol/L Anion Gap mmol/L BUN (9-20) mg/dL Creatinine (0.66-1.25) mg/dL Est GFR (CKD-EPI)AfAm (>60 ml/min/1.73 sqM) Est GFR (CKD-EPI)NonAf (>60 ml/min/1.73 sqM) Glucose (74-99) mg/dL Lactic Ac Sepsis Rflx Plasma Lactic Acid Tray (0.7-2.0) mmol/L Calcium (8.4-10.2) mg/dL Total Bilirubin (0.2-1.3) mg/dL AST (17-59) U/L ALT (4-49) U/L Alkaline Phosphatase (38-126) U/L Troponin I (0.000-0.034) ng/mL NT-Pro-B Natriuret Pep pg/mL Total Protein (6.3-8.2) g/dL Albumin (3.5-5.0) g/dL Influenza Type A (PCR) Not Detected (Not Detectd) Influenza Type B (PCR) Not Detected (Not Detectd) RSV (PCR) Not Detected (Not Detectd) SARS-CoV-2 (PCR) Not Detected (Not Detectd) Disposition Clinical Impression: Tracheobronchitis, Stridor Disposition: OTHER INSTITUTION NOT DEFINED Condition: Fair Time of Disposition: 14:55 - Out of Hospital Transfer - Req. Specs Out of Hospital Transfer - Requested Specifics: Other Emergency Center ([facility])
[2024-08-24 16:27] VITALS: BP 118/70; PULSE 74; RESP 22
[2024-08-24] MEDS: FORMOTEROL FUMARATE 20 MCG/2 ML NEBU INHALATION SCH (16:30)
[2024-08-24] MEDS: BUDESONIDE 1 MG/2 ML NEBU INHALATION SCH (16:30)
[2024-08-24] MEDS: IPRATROPIUM-ALBUTEROL 3 ML NEB INHALATION SCH (16:39)
[2024-08-24] MEDS ORDERED: methylPREDNISolone SOD SUCCI 125 MG/2 ML VIAL IV SCH (18:00)
[2024-08-24] MEDS ORDERED: HEPARIN SODIUM,PORCINE 5,000 UNIT/ML 1 ML VIAL SQ SCH (21:00)
--- NOTE | 2024-08-25 00:48 | HP ---
HISTORY AND PHYSICAL CHIEF COMPLAINT: Shortness of breath. HISTORY OF PRESENT ILLNESS: This is an 83-year-old gentleman with a past medical history of multiple medical problems including COPD, CAD, CABG, is complaining of shortness of breath. The patient has some wheezing also. The patient has taken a Z-Abdulkadir without much relief. There is no history of any fever, rigors, or chills at this time. Initial chest x-ray which I reviewed personally showed chronic changes without any acute pulmonary abnormality and soft tissue of the neck was also unremarkable. There is no history of any fever, rigors, or chills. PAST MEDICAL HISTORY: Hypertension, hyperlipidemia, history of COPD. Rest of the history and rest of the chart is also reviewed. HOME MEDICATIONS: Reviewed include Zithromax, Z-Abdulkadir, dose and rest of medications reviewed. ALLERGIES: Penicillin. FAMILY HISTORY: Diabetes mellitus type 2. SOCIAL HISTORY: Previous history of smoking. REVIEW OF SYSTEMS: Fourteen-point review of systems is negative except as mentioned earlier. PHYSICAL EXAMINATION: VITAL SIGNS: Pulse 77, blood pressure 103/56, respirations 18. HEENT: Conjunctivae normal. NECK: No JVD. CARDIOVASCULAR: S1, S2. RESPIRATIONS: Breath sounds diminished at the bases. Bilateral scattered rhonchi and crackles. Otherwise, audible stridor also present. ABDOMEN: Soft, nontender. LEGS: No edema. NERVOUS SYSTEM: Nonfocal. LABORATORY DATA: WBC 16.5. Lactic acid 2.8. ASSESSMENT: 1. Chronic obstructive pulmonary disease acute exacerbation with acute purulent tracheobronchitis. 2. Possible stridor for evaluation. 3. Chronic kidney disease, stage 3. 4. Increased WBC. 5. Hypertension. 6. Hyperlipidemia. 7. Multiple complex medical issues. 8. History of coronary artery disease, coronary artery bypass graft. RECOMMENDATIONS AND DISCUSSION: This is an 83-year-old gentleman presented with multiple complex medical issues. We will monitor the patient closely. I would recommend intensive bronchodilator treatment as well as IV steroids. Pulmonary consultation. I would also recommend CT scan of the chest and as well as I would also obtain a D-dimer and also CT scan of the neck also. Prognosis guarded. Further recommendations to follow. MMODL / IJN: [id number] /
[2024-08-25] MEDS ORDERED: PANTOPRAZOLE 40 MG TABLET PO SCH (07:30)
== END 2024-08-24 16:43 | disposition short-term general hospital (02) ==
LOC: EC 10:46 → UNDOADMIN 13:37 → 4SSUR 13:37 → EC 16:43 → UNDODISIN 16:45
DX: J40 Bronchitis, not specified as acute or chronic (principal); R06.1 Stridor; Z87.891 Personal history of nicotine dependence; Z88.0 Allergy status to penicillin
CPT/HCPCS: 96365 ×2; 96366 ×2; 96367 ×2; 96375 ×2; 99285 ×2; 36415; 94640 ×2; 93005; 85379; 83880; 80053; 83605; 84484; 85025; 85610; 85730; 84145; 87636; 70360; 71046; J1956; J0696; J2919

== ENCOUNTER 2024-09-03 14:12 | Emergency (ER) | payer MEDICARE ==
[2024-09-03 14:22] VITALS: TEMP 98.3
--- NOTE | 2024-09-03 16:16 | ED ---
SOB HPI - General Chief Complaint: Shortness of Breath Stated Complaint: SOB Time Seen by Provider: 09/03/24 16:14 Source: patient, RN notes reviewed Mode of arrival: ambulatory Limitations: no limitations - History of Present Illness Initial Comments: 83-year-old male presenting with shortness of breath x 10 days with wheezing. States he was seen here last week where he was admitted for pneumonia. States initially they were concerned for sinusitis and transferred him to [facility] as there was not an ENT specialist on-call. Patient states he was worked up at [facility] and diagnosed with pneumonia. States his symptoms initially started 20 days ago as a sinus infection and was given Z-Abdulkadir by his doctor. States that Z-Abdulkadir did not improve symptoms and began to have audible wheezing and shortness of breath, prompting him to come to the ER 10 days ago. He was discharged and finished his course of antibiotics. States he felt better at the time of discharge however over the past few days however wheezing has returned. States he feels wheezy and short of breath. He does have a history of emphysema. - Related Data Home Medications Medication Instructions Recorded Confirmed Aspirin EC [Ecotrin] 81 mg PO DAILY 05/04/16 08/24/24 Levothyroxine Sodium [Synthroid] 150 mcg PO DAILY 05/04/16 08/24/24 Clopidogrel [Plavix] 75 mg PO DAILY 05/22/22 08/24/24 Isosorbide Mononitrate ER [Imdur] 30 mg PO DAILY 05/22/22 08/24/24 Losartan Potassium [Cozaar] 100 mg PO DAILY 05/22/22 08/24/24 Metoprolol Succinate (ER) [Toprol 25 mg PO DAILY 05/22/22 08/24/24 Xl] metFORMIN HCL [Glucophage] 1,000 mg PO DAILY 05/22/22 08/24/24 Azithromycin [Zithromax Z Pack] See Taper PO DIRECTED 08/24/24 08/24/24 Empagliflozin [Jardiance] 10 mg PO DAILY 08/24/24 08/24/24 Furosemide [Lasix] 40 mg PO DAILY 08/24/24 08/24/24 Potassium Chloride ER [K-Dur 20] 20 meq PO DAILY 08/24/24 08/24/24 Rosuvastatin [Crestor] 20 mg PO HS 08/24/24 08/24/24 Previous Rx's Medication Instructions Recorded Albuterol Inhaler [Ventolin Hfa 1 - 2 puff INHALATION Q6H PRN #1 09/03/24 Inhaler] each predniSONE [Deltasone] 40 mg PO DAILY #10 tab 09/03/24 Allergies Allergy/AdvReac Type Severity Reaction Status Date / Time Penicillins Allergy Swelling Verified 09/03/24 14:22 Review of Systems ROS Statement: Those systems with pertinent positive or pertinent negative responses have been documented in the HPI. ROS Other: All systems not noted in ROS Statement are negative. Past Medical History Past Medical History: Hyperlipidemia, Hypertension, Myocardial Infarction (CT), Thyroid Disorder Additional Past Medical History / Comment(s): Emphysema Last Myocardial Infarction Date:: 1992 History of Any Multi-Drug Resistant Organisms: None Reported Past Surgical History: Appendectomy, Back Surgery, Coronary Bypass/CABG, Joint Replacement, Orthopedic Surgery Past Anesthesia/Blood Transfusion Reactions: No Reported Reaction Past Psychological History: No Psychological Hx Reported Smoking Status: Former smoker Past Alcohol Use History: None Reported Past Drug Use History: None Reported - Past Family History Sister(s) Family Medical History: Diabetes Mellitus Father Family Medical History: Myocardial Infarction (CT) Mother Family Medical History: Cancer General Exam Limitations: no limitations General appearance: alert, in no apparent distress Head exam: Present: atraumatic, normocephalic, normal inspection ENT exam: Present: normal exam, mucous membranes moist Respiratory exam: Present: normal lung sounds bilaterally, wheezes (Wheezing in all lung alvarenga bilaterally). Absent: respiratory distress, rales, rhonchi, stridor, accessory muscle use Cardiovascular Exam: Present: regular rate, normal rhythm, normal heart sounds. Absent: systolic murmur, diastolic murmur, rubs, gallop, clicks Neurological exam: Present: alert, oriented X3 Psychiatric exam: Present: normal affect, normal mood Skin exam: Present: warm, dry, intact, normal color. Absent: rash Course Vital Signs 09/03/24 09/03/24 09/03/24 14:20 16:20 17:43 Temperature 98.3 F Pulse Rate 84 71 84 Respiratory 20 18 Rate Blood Pressure 117/66 118/64 O2 Sat by Pulse 98 97 Oximetry 09/03/24 09/03/24 17:53 18:00 Temperature Pulse Rate 84 89 Respiratory 17 Rate Blood Pressure 113/65 O2 Sat by Pulse 97 Oximetry Medical Decision Making - Medical Decision Making Was pt. sent in by a medical professional or institution (, [facility], [facility], urgent care, hospital, or retirement...) When possible be specific @ -No Did you speak to anyone other than the patient for history (EMS, parent, family, police, friend...)? What history was obtained from this source @ -No Did you review nursing and triage notes (agree or disagree)? Why? @ -I reviewed and agree with nursing and triage notes Were old charts reviewed (outside hosp., previous admission, EMS record, old EKG, old radiological studies, urgent care reports/EKG's, retirement records)? Report findings @ -No old charts were reviewed Differential Diagnosis (chest pain, altered mental status, abdominal pain women, abdominal pain men, vaginal bleeding, weakness, fever, dyspnea, syncope, headache, dizziness, GI bleed, back pain, seizure, CVA, palpatations, mental health, musculoskeletal)? @ -Differential Dyspnea: Coronary syndrome, arrhythmia, tamponade, asthma, COPD, pulmonary embolism, pneumonia, pneumothorax, pulmonary effusion, anaphylaxis, diabetic ketoacidosis, flailed chest, pulmonary contusion, diaphragmatic rupture, anemia, neuromuscular, this is not meant to be an all-inclusive list. EKG interpreted by me (3pts min.). @ -As above X-rays interpreted by me (1pt min.). @ -Chest x-ray reveals chronic changes without acute pulmonary process CT interpreted by me (1pt min.). @ -None done U/S interpreted by me (1pt. min.). @ -None done What testing was considered but not performed or refused? (CT, X-rays, U/S, labs)? Why? @ -None What meds were considered but not given or refused? Why? @ -None Did you discuss the management of the patient with other professionals (professionals i.e. [facility] [employer], [facility], lab, RT, psych nurse, social media project manager, police commissioner, t eacher, sba business development officer, therapeutic case manager)? Give summary @ -No Was smoking cessation discussed for >3mins.? @ -No Was critical care preformed (if so, how long)? @ -No Were there social determinants of health that impacted care today? How? (Homelessness, low income, unemployed, alcoholism, drug addiction, transportation, low edu. Level, literacy, decrease access to med. care, skilled nursing, rehab)? @ -No Was there de-escalation of care discussed even if they declined (Discuss DNR or withdrawal of care, Hospice)? DNR status @ -No What co-morbidities impacted this encounter? (DM, HTN, Smoking, COPD, CAD, Cance r, CVA, ARF, Chemo, Hep., AIDS, mental health diagnosis, sleep apnea, morbid obesity)? @ -COPD Was patient admitted / discharged? Hospital course, mention meds given and route, prescriptions, significant lab abnormalities, going to OR and other pertinent info. @ -Discharge. This is an 83-year-old male with history of emphysema presenting for shortness of breath x 10 days with wheezing. Patient was recently hospitalized for pneumonia. Vital signs within acceptable limits, temperature 98.3, heart rate 71 bpm, satting 97% on room air, respiratory rate 18, blood pressure 118/64. There is diffuse inspiratory and expiratory wheezing on auscultation, no signs of respiratory distress. Patient was given dose of Solu- Medrol and breathing treatment. Lab work including CBC, CMP, lactic remarkable for mildly increased white blood cell count of 10.8. Patient is negative for COVID, influenza, and RSV. Chest x-ray reveals chronic changes without acute pulmonary process. Upon reevaluation, patient reports symptom improvement after breathing treatment and steroids. I believe it is safe to discharge patient home as vital signs are stable, there are no signs of respiratory distress, and there is no sign of pneumonia on workup. Patient is agreeable with this plan. Patient has PCP to follow-up with on Friday and is able to return to the ER should symptoms change or worsen. Patient is given strict return parameters. Prescribed steroid and albuterol inhaler. Case was discussed with my ED attending Dr. Lindo. Undiagnosed new problem with uncertain prognosis? @ -No Drug Therapy requiring intensive monitoring for toxicity (Heparin, Nitro, Insulin, Cardizem)? @ -No Were any procedures done? @ -No Diagnosis/symptom? @ -COPD exacerbation Acute, or Chronic, or Acute on Chronic? @ -Acute Uncomplicated (without systemic symptoms) or Complicated (systemic symptoms)? @ -Uncomplicated Side effects of treatment? @ -No Exacerbation, Progression, or Severe Exacerbation? @ -Exacerbation Poses a threat to life or bodily function? How? (Chest pain, USA, CT, pneumonia, PE, COPD, DKA, ARF, appy, cholecystitis, CVA, Diverticulitis, Homicidal, Suicidal, threat to staff... and all critical care pts) @ -Not at this time - Lab Data Result diagrams: 09/03/24 15:59 09/03/24 15:59 Lab Results 09/03/24 09/03/24 09/03/24 Range/Units 15:59 15:59 15:59 WBC 10.8 H (3.8-10.6) k/uL RBC 4.99 (4.30-5.90) m/uL Hgb 13.8 (13.0-17.5) gm/dL Hct 42.9 (39.0-53.0) % MCV 85.9 (80.0-100.0) fL MCH 27.7 (25.0-35.0) pg MCHC 32.3 (31.0-37.0) g/dL RDW 15.4 (11.5-15.5) % Plt Count 230 (150-450) k/uL MPV 8.0 Neutrophils % 79 % Lymphocytes % 12 % Monocytes % 5 % Eosinophils % 1 % Basophils % 0 % Neutrophils # 8.5 H (1.3-7.7) k/uL Lymphocytes # 1.3 (1.0-4.8) k/uL Monocytes # 0.6 (0-1.0) k/uL Eosinophils # 0.1 (0-0.7) k/uL Basophils # 0.0 (0-0.2) k/uL Sodium 139 (137-145) mmol/L Potassium 4.4 (3.5-5.1) mmol/L Chloride 106 (98-107) mmol/L Carbon Dioxide 28 (22-30) mmol/L Anion Gap 5 mmol/L BUN 20 (9-20) mg/dL Creatinine 1.08 (0.66-1.25) mg/dL Est GFR (CKD-EPI)AfAm 73 (>60 ml/min/1.73 sqM) Est GFR (CKD-EPI)NonAf 63 (>60 ml/min/1.73 sqM) Glucose 134 H (74-99) mg/dL Plasma Lactic Acid Tray 1.5 (0.7-2.0) mmol/L Calcium 9.1 (8.4-10.2) mg/dL Total Bilirubin 0.7 (0.2-1.3) mg/dL AST 27 (17-59) U/L ALT 31 (4-49) U/L Alkaline Phosphatase 72 (38-126) U/L Total Protein 7.1 (6.3-8.2) g/dL Albumin 4.1 (3.5-5.0) g/dL Influenza Type A (PCR) (Not Detectd) Influenza Type B (PCR) (Not Detectd) RSV (PCR) (Not Detectd) SARS-CoV-2 (PCR) (Not Detectd) 09/03/24 Range/Units 16:00 WBC (3.8-10.6) k/uL RBC (4.30-5.90) m/uL Hgb (13.0-17.5) gm/dL Hct (39.0-53.0) % MCV (80.0-100.0) fL MCH (25.0-35.0) pg MCHC (31.0-37.0) g/dL RDW (11.5-15.5) % Plt Count (150-450) k/uL MPV Neutrophils % % Lymphocytes % % Monocytes % % Eosinophils % % Basophils % % Neutrophils # (1.3-7.7) k/uL Lymphocytes # (1.0-4.8) k/uL Monocytes # (0-1.0) k/uL Eosinophils # (0-0.7) k/uL Basophils # (0-0.2) k/uL Sodium (137-145) mmol/L Potassium (3.5-5.1) mmol/L Chloride (98-107) mmol/L Carbon Dioxide (22-30) mmol/L Anion Gap mmol/L BUN (9-20) mg/dL Creatinine (0.66-1.25) mg/dL Est GFR (CKD-EPI)AfAm (>60 ml/min/1.73 sqM) Est GFR (CKD-EPI)NonAf (>60 ml/min/1.73 sqM) Glucose (74-99) mg/dL Plasma Lactic Acid Tray (0.7-2.0) mmol/L Calcium (8.4-10.2) mg/dL Total Bilirubin (0.2-1.3) mg/dL AST (17-59) U/L ALT (4-49) U/L Alkaline Phosphatase (38-126) U/L Total Protein (6.3-8.2) g/dL Albumin (3.5-5.0) g/dL Influenza Type A (PCR) Not Detected (Not Detectd) Influenza Type B (PCR) Not Detected (Not Detectd) RSV (PCR) Not Detected (Not Detectd) SARS-CoV-2 (PCR) Not Detected (Not Detectd) - EKG Data -: EKG Interpreted by Me EKG Comments: EKG reveals normal sinus rhythm with no ST changes. Ventricular rate 81 bpm, WV interval 163, QRS duration 105, QT/QTc 391/428 Disposition Clinical Impression: COPD exacerbation Disposition: HOME SELF-CARE Condition: Stable Instructions (If sedation given, give patient instructions): COPD (Chronic Obstructive Pulmonary Disease) (ED) Additional Instructions: Follow-up with Dr. Pereira on Friday. Take steroids as prescribed. Use albuterol inhaler as needed. Please return to the Emergency Department if sym ptoms worsen or any other concerns. Prescriptions: predniSONE [Deltasone] 40 mg PO DAILY #10 tab Albuterol Inhaler [Ventolin Hfa Inhaler] 1 - 2 puff INHALATION Q6H PRN #1 each PRN Reason: Shortness Of Breath Is patient prescribed a controlled substance at d/c from ED?: No Referrals: Jonnathan Pereira MD [Primary Care Provider] - 1-2 days Time of Disposition: 18:15
[2024-09-03] MEDS: methylPREDNISolone SOD SUCCI 125 MG/2 ML VIAL IV STA (16:19)
[2024-09-03 16:45] LABS: Basophils % (A) 0 %; Eosinophils # (A) 0.1 k/uL (0-0.7); Eosinophils % (A) 1 %; HCT 42.9 % (39.0-53.0); HGB 13.8 gm/dL (13.0-17.5); Lymphocytes # (A) 1.3 k/uL (1.0-4.8); Lymphocytes % (A) 12 %; MCH 27.7 pg (25.0-35.0); MCHC 32.3 g/dL (31.0-37.0); MCV 85.9 fL (80.0-100.0); Monocytes # (A) 0.6 k/uL (0-1.0); Monocytes % (A) 5 %; Neutrophils # (A) 8.5 k/uL (1.3-7.7); Neutrophils % (A) 79 %; Platelet Count 230 k/uL (150-450); RBC 4.99 m/uL (4.30-5.90); RDW 15.4 % (11.5-15.5); WBC 10.8 k/uL (3.8-10.6)
[2024-09-03 17:00] LABS: ALT 31 U/L (4-49); AST 27 U/L (17-59); African American GFR (CKD) 73 (>60 ml/min/1.73 sqM); Albumin 4.1 g/dL (3.5-5.0); Alkaline Phosphatase 72 U/L (38-126); Anion Gap 5 mmol/L; Blood Urea Nitrogen 20 mg/dL (9-20); Calcium 9.1 mg/dL (8.4-10.2); Carbon Dioxide 28 mmol/L (22-30); Chloride 106 mmol/L (98-107); Glucose 134 mg/dL (74-99); Non-African American GFR(CKD) 63 (>60 ml/min/1.73 sqM); Potassium 4.4 mmol/L (3.5-5.1); Sodium 139 mmol/L (137-145); Total Bilirubin 0.7 mg/dL (0.2-1.3); Total Protein 7.1 g/dL (6.3-8.2)
--- NOTE | 2024-09-03 17:24 | XR ---
EXAMINATION TYPE: XR chest 2V DATE OF EXAM: 09/03/2024 4:29 PM COMPARISON: Chest radiographs from 08/24/2024 TECHNIQUE: XR chest 2V Frontal and lateral views of the chest. CLINICAL INDICATION:Male, 83 years old with history of cough, shortness of breath; FINDINGS: Lungs/Pleura: There is no evidence of pleural effusion, focal consolidation, or pneumothorax. Chroni c lung changes. Eventration of the right hemidiaphragm redemonstrated. Pulmonary vascularity: Unremarkable. Heart/mediastinum: Cardiomediastinal silhouette is stable. Atherosclerotic calcifications are seen i n the aorta. Musculoskeletal: Multiple level degenerative disc disease changes seen throughout the spine. Midline sternotomy wires are noted and stable. Bilateral AC joint arthropathy. IMPRESSION: Chronic changes without acute pulmonary process. No significant change from prior. [facility], , 09/03/2024 5:22 PM
[2024-09-03] MEDS: IPRATROPIUM-ALBUTEROL 3 ML NEB INHALATION STA (17:43)
[2024-09-03 18:35] VITALS: BP 139/79; PULSE 79; RESP 20
== END 2024-09-03 18:42 | disposition home or self-care (01) ==
LOC: EC 14:12
DX: J44.1 Chronic obstructive pulmonary disease with (acute) exacerbation (principal); Z87.891 Personal history of nicotine dependence; Z88.0 Allergy status to penicillin
CPT/HCPCS: 36415; 94640; 93005; 80053; 83605; 85025; 87040; 87636; 71046; 99285; 96374; J2919